=== PATIENT | female | born 1950 | race Hispanic/Latino ===

== ENCOUNTER 2017-01-09 11:01 | Outpatient (CLI) | payer MEDICARE ==
--- NOTE | 2017-01-09 16:06 | Mammography Report ---
LEFT DIGITAL SCREENING MAMMOGRAM with CAD: 01/09/17 11:01:00 CLINICAL: Routine screening. Breast cancer survivor status post right mastectomy. COMPARISON:12/21/15 FINDINGS: Routine views without and with implant displacement were performed. The breast is extremely dense which limits the sensitivity of mammography.No mass, suspicious architectural distortion or suspicious calcifications. Intact subglandular implant. IMPRESSION: No mammographic evidence of malignancy. BI-RADS CATEGORY: 2 -- Benign RECOMMENDATION: Routine screening in one year. ACR BI-RADS MAMMOGRAPHIC CODES: 0 = Needs additional imaging evaluation; 1 = Negative; 2 = Benign; 3 = Probably benign; 4 = Suspicious; 5 = Malignant; 6 = Known biopsy-proven malignancy COMMENT: 1. Dense breast tissue, i.e., adenosis, fibrocystic changes, etc., may obscure an underlying neoplasm. 2. Approximately 10% of cancers are not detected with mammography. 3. A negative mammography report should not delay biopsy if a clinically suspicious mass is present. COMMENT: Patient follow-up letters are generated via our [employer] application.
== END 2017-01-09 11:02 | disposition home or self-care (01) ==
LOC: SPVWC 11:01
PROVIDERS: ATTEND Internal Medicine Hematology & Oncology
DX: Z12.31 Encounter for screening mammogram for malignant neoplasm of breast (principal); Z90.11 Acquired absence of right breast and nipple
CPT/HCPCS: G0202-52

== ENCOUNTER 2020-11-15 12:50 | Outpatient (CLI) | payer MEDICARE ==
--- NOTE | 2020-11-15 14:45 | Mammography Report ---
DIGITAL SCREENING MAMMOGRAM WITH CAD, 11/15/2020 INDICATION: Routine screening mammography. History of right mastectomy. TECHNIQUE: Digital left 2D mammography was obtained in the craniocaudal and mediolateral oblique pro jections. This examination was interpreted with the benefit of Computer-Aided Detection analysis. COMPARISON: 01/09/2017 FINDINGS: Breast Density: The breasts are extremely dense, which lowers the sensitivity of mammography. There is no evidence of dominant mass, suspicious calcifications or architectural distortion in the l eft breast. A few benign scattered calcifications are noted throughout the left breast parenchyma. A biopsy clip is present in the inferior breast. A silicone retropectoral breast implant is present. Ov erall, no interval change in the appearance of the mammogram. IMPRESSION: No mammographic evidence of malignancy. BI-RADS Category 2: Benign. No mammographic evidence of malignancy. Recommend routine screening ma mmography in one year. A "normal" or negative report should not discourage follow up or biopsy of a clinically significant f inding. A written summary of these findings will be mailed to the patient. The patient will be entered into a mammography reporting system which will generate a reminder letter for the patient's next appointmen t at the appropriate interval. The [employer] recommends yearly mammograms starting at age 40 and continuing as l terrance as a woman is in good health. Breast MRI is recommended for women with an approximate 20-25% or greater lifetime risk of breast cancer, including women with a strong family history of breast or ova yanira cancer or who have been treated for Hodgkin's disease. Signer Name: Gisselle Kelly MD Signed: 11/15/2020 2:40 PM Workstation Name: [id number]
== END 2020-11-15 12:51 | disposition home or self-care (01) ==
LOC: SPVWC 12:50
PROVIDERS: ATTEND Internal Medicine Hematology & Oncology
DX: Z12.31 Encounter for screening mammogram for malignant neoplasm of breast (principal); N64.89 Other specified disorders of breast

== ENCOUNTER 2021-11-20 12:53 | Outpatient (CLI) | payer MEDICARE ==
--- NOTE | 2021-11-21 10:40 | Mammography Report ---
DIGITAL SCREENING MAMMOGRAM WITH CAD, 11/20/2021 CLINICAL INFORMATION / INDICATION: Routine screening TECHNIQUE: Digital left 2D mammography was obtained in the craniocaudal and mediolateral oblique pro jections. This examination was interpreted with the benefit of Computer-Aided Detection analysis. COMPARISON: 11/15/2020 FINDINGS: Breast Density: The breasts are extremely dense, which lowers the sensitivity of mammography. No dominant mass, suspicious calcifications, or architectural distortion in the left breast. Implant is again seen. Biopsy changes are again noted. Calcifications are stable. IMPRESSION: No mammographic evidence of malignancy. Follow up recommendation: Routine yearly BI-RADS Category 2: BENIGN. A "normal" or negative report should not discourage follow up or biopsy of a clinically significant f inding. A written summary of these findings will be mailed to the patient. The patient will be entered into a mammography reporting system which will generate a reminder letter for the patient's next appointmen t at the appropriate interval. The [employer] recommends yearly mammograms starting at age 40 and continuing as l terrance as a woman is in good health. Breast MRI is recommended for women with an approximate 20-25% or greater lifetime risk of breast cancer, including women with a strong family history of breast or ova yanira cancer or who have been treated for Hodgkin's disease. Signer Name: Josemanuel Olmedo MD Signed: 11/21/2021 10:36 AM Workstation Name: [email or web address]
== END 2021-11-20 12:54 | disposition home or self-care (01) ==
LOC: SPVWC 12:53
PROVIDERS: ATTEND Internal Medicine Hematology & Oncology
DX: Z12.31 Encounter for screening mammogram for malignant neoplasm of breast (principal)